=== PATIENT | male | born 1970 | race Caucasian/White ===

== ENCOUNTER → 2021-02-21 | Outpatient (CLI) | payer OTHER ==
[~2021-02-21] MED LIST: MAGN400C PO; NO ITAB PO
== END ==
LOC: M LABSMTC 10:42
PROVIDERS: ATTEND Anesthesiology
DX: Z01.812 Encounter for preprocedural laboratory examination (principal); Z11.52 Encounter for screening for COVID-19

== ENCOUNTER 2021-02-26 08:52 | Day surgery (SDC) | payer OTHER ==
[~2021-02-26] VITALS: Ht 175.3 cm; Wt 86.5 kg
[~2021-02-26 08:52] MED LIST changes: +NS 1,000 ML IV ONE
[2021-02-26] MEDS ORDERED: propofoL 200 MG/20 ML VIAL As Ordered ONE (10:08)
[2021-02-26] MEDS ORDERED: LIDOCAINE 2% 100MG/5ML SDV (FOR ANES.) As Ordered ONE (10:08)
[2021-02-26 10:34] VITALS: BP 122/73
== END 2021-02-26 10:55 | disposition home or self-care (01) ==
LOC: M OPP 08:52
PROVIDERS: ATTEND Internal Medicine Gastroenterology
DX: Z12.11 Encounter for screening for malignant neoplasm of colon (principal); K64.0 First degree hemorrhoids; Z88.1 Allergy status to other antibiotic agents

== ENCOUNTER 2021-08-27 06:42 | Emergency (ER) | payer OTHER ==
[~2021-08-27] VITALS: Ht 175.3 cm; Wt 85.0 kg
[~2021-08-27 06:42] MED LIST changes: -NS 1,000 ML IV ONE
[2021-08-27] MEDS ORDERED: IBUP-1114 PO (06:51)
[2021-08-27] MEDS ORDERED: ALEV220T22 PO (06:51)
[2021-08-27] MEDS ORDERED: ACET-683 PO (06:51)
[2021-08-27] MEDS ORDERED: CLINDAMYCIN 150MG CAPSULE PO ONE (09:15)
[2021-08-27] MEDS ORDERED: PERCOCET 5MG/325MG TAB PO ONE (09:15)
[2021-08-27] MEDS ORDERED: CLIN150C17 PO (09:21)
[2021-08-27] MEDS ORDERED: PERC5TAB12 PO (09:21)
[2021-08-27 09:30] VITALS: BP 182/98
== END 2021-08-27 09:32 | disposition home or self-care (01) ==
LOC: M ED 06:42
DX: S02.5XXA Fracture of tooth (traumatic), initial encounter for closed fracture (principal); X58.XXXA Exposure to other specified factors, initial encounter; Y92.89 Other specified places as the place of occurrence of the external cause; K04.7 Periapical abscess without sinus; R03.0 Elevated blood-pressure reading, without diagnosis of hypertension

== ENCOUNTER → 2022-06-14 | Outpatient (CLI) | payer OTHER ==
[~2022-06-14] MED LIST changes: +ACET-683 PO; +ALEV220T22 PO; +CLIN150C17 PO; +IBUP-1114 PO; +PERC5TAB12 PO
== END ==
LOC: M WUC 09:45
PROVIDERS: ATTEND Physician Assistant Medical
DX: M25.552 Pain in left hip (principal)

== ENCOUNTER → 2022-09-24 | Outpatient (REF) | payer OTHER ==
[2022-09-24 13:12] LABS: BASO # 0.1 10^3/uL (0.0-0.2); BASO % 0.8 % (0.0-1.0); EOS # 0.1 10^3/uL (0.0-0.5); HEMOGLOBIN 14.7 g/dl (13.5-17.5); LYMPH % 31.8 % (24.0-44.0); MEAN CORPUSCULAR HEMOGLOBIN 30.6 pg (27.0-33.0); MEAN CORPUSCULAR VOLUME 87.5 fl (80.0-96.0); MONO # 0.5 10^3/uL (0.0-0.8); MONO % 8.4 % (2.0-8.0); NEUTROPHILS # 3.6 10^3/uL (1.5-8.5); NEUTROPHILS % 56.7 % (36.0-66.0); PLATELET COUNT, AUTOMATED 229 10^3/uL (150-450); WHITE BLOOD COUNT 6.4 10^3/uL (4.0-10.0)
== END ==
LOC: M LABDRWAD 12:22
PROVIDERS: ATTEND Orthopaedic Surgery
DX: M25.59 Pain in other specified joint (principal)

== ENCOUNTER → 2022-10-08 | Outpatient (REF) | payer OTHER ==
[2022-10-08 16:17] LABS: ALBUMIN 3.8 G/DL (3.2-5.2); ALKALINE PHOSPHATASE 54 U/L (46-116); ALT/SGPT 22 U/L (7.0-40); AST/SGOT 13 U/L (<34); BILIRUBIN,TOTAL 0.3 MG/DL (0.3-1.2); BLOOD UREA NITROGEN 27 MG/DL (9-23); CARBON DIOXIDE LEVEL 29 MMOL/L (20-31); CHLORIDE LEVEL 106 MMOL/L (98-107); CREATININE FOR GFR 1.05 MG/DL (0.70-1.30); GLOMERULAR FILTRATION RATE > 60.0 (>56); GLUCOSE, FASTING 116 MG/DL (60-100); POTASSIUM SERUM 4.4 MMOL/L (3.5-5.1); SODIUM LEVEL 141 MMOL/L (136-145); TOTAL PROTEIN 6.5 G/DL (5.7-8.2)
== END ==
LOC: M LABDRWAD 14:36
PROVIDERS: ATTEND Orthopaedic Surgery
DX: M25.559 Pain in unspecified hip (principal)

== ENCOUNTER 2024-03-25 04:59 | Emergency (ER) | payer OTHER ==
[~2024-03-25] VITALS: Ht 175.3 cm; Wt 90.6 kg
[2024-03-25 05:02] VITALS: BP 138/76; TEMP 98; O2SAT 99
[2024-03-25] MEDS: FLUORESCEIN OPHTH 1MG STRIP OS ONE (06:43)
[2024-03-25] MEDS: TETRACAINE 0.5% OPHTH SOLN 4ML OS ONE (06:43)
[2024-03-25] MEDS ORDERED: MOXI3DRO OS (06:58)
[2024-03-25] MEDS: BOOSTRIX VACCINE (TETANUS/DIPHTH/ACEL. PERTUSSIS) 0.5ML SYR IM ONE (07:00)
== END 2024-03-25 07:05 | disposition home or self-care (01) ==
LOC: M ED 04:59
DX: H10.32 Unspecified acute conjunctivitis, left eye (principal); S05.02XA Injury of conjunctiva and corneal abrasion without foreign body, left eye, initial encounter; Y92.9 Unspecified place or not applicable; Y93.9 Activity, unspecified; Y99.9 Unspecified external cause status; Z23 Encounter for immunization; Z88.1 Allergy status to other antibiotic agents; Z79.1 Long term (current) use of non-steroidal anti-inflammatories (NSAID); Z79.810 Long term (current) use of selective estrogen receptor modulators (SERMs)